=== PATIENT | female | born 1980 | race Caucasian/White ===

== ENCOUNTER → 2020-08-23 11:27 | Outpatient (CLI) | payer OTHER, SELFPAY ==
--- NOTE | ~2020-08-23 | XR_ITS ---
EXAMINATION: XR chest 2V 08/23/2020 11:47 INDICATION: Cough PROCEDURE: 2 view chest COMPARISON: 11/28/2010 FINDINGS: The lungs are clear. The cardiomediastinal silhouette is within normal limits. There are no pleural effusions. There is no pneumothorax suspected. IMPRESSION: 1: NO ACUTE CARDIOPULMONARY DISEASE. Reviewed, dictated and finalized at location A. ER SECURITY ADMINISTRATOR
== END ==
PROVIDERS: PCP Family Medicine; Visit Provider Physician Assistant
DX: R05 Cough (principal)
CPT/HCPCS: 71046

== ENCOUNTER → 2022-09-03 15:20 | Outpatient (CLI) | payer OTHER, SELFPAY ==
--- NOTE | ~2022-09-03 | XR_ITS ---
EXAM: XR hip LT min 2V DATE: 09/03/2022 15:45 HISTORY: M25.559 - Pain in unspecified hip . COMPARISON: None available. FINDINGS: Normal mineralization. No fracture or dislocation. No lytic or blastic lesion. Mild superi or hip joint space narrowing. Minimal acetabular and femoral head osteophytosis. Degenerative change at the pubic symphysis. No erosion or periosteal change. Soft tissues within normal limits. IMPRESSION: Mild left hip osteoarthritis. Moderate osteitis pubis. Reviewed, dictated and finalized at location K. FIC ENGINEER
== END ==
PROVIDERS: PCP Family Medicine; Visit Provider Nurse Practitioner Gerontology
DX: M16.12 Unilateral primary osteoarthritis, left hip (principal); R74.8 Abnormal levels of other serum enzymes; R23.3 Spontaneous ecchymoses; Z83.2 Family history of diseases of the blood and blood-forming organs and certain disorders involving the immune mechanism
CPT/HCPCS: 73502

== ENCOUNTER → 2022-12-27 12:16 | Outpatient (CLI) | payer OTHER, SELFPAY ==
--- NOTE | ~2022-12-27 | XR_ITS ---
XR foot RT 2V DATE: 12/27/2022 12:57 INDICATION: Multiple joint pain. Right foot pain. TECHNIQUE: AP and lateral views COMPARISON: None FINDINGS: There is postoperative change from bunionectomy. Slight posterior calcaneal enthesopathy. No fracture or dislocation, periosteal reaction or bone destruction or erosive change. Mild osteophyte is at the first metatarsophalangeal joint. IMPRESSION: Status post bunionectomy Mild first metatarsophalangeal joint osteoarthritis Slight posterior calcaneal enthesopathy Reviewed, dictated and finalized at location B.
--- NOTE | ~2022-12-27 | XR_ITS ---
XR sacroiliac joints min 3V DATE: 12/27/2022 12:57 INDICATION: Sacroiliac pain. Multiple joint pain. TECHNIQUE: AP and bilateral oblique views of the sacroiliac joints COMPARISON: None FINDINGS: Normal alignment at the sacroiliac joints. No erosive change or ankylosis. Hip joint spaces appear symmetric and relatively preserved. Normal alignment at the pubic symphysis. No pelvic fracture or bone destruction. IMPRESSION: Negative sacroiliac joints Reviewed, dictated and finalized at Location A. Reviewed, dictated and finalized at location B. IMPRESSION: Negative sacroiliac joints
--- NOTE | ~2022-12-27 | XR_ITS ---
XR hand RT 2V DATE: 12/27/2022 12:57 INDICATION: Multiple joint pain. Right hand pain. TECHNIQUE: AP and lateral views COMPARISON: None FINDINGS: No fracture or dislocation, periosteal reaction or bone destruction, erosive change or julienne drocalcinosis. IMPRESSION: No significant abnormality Reviewed, dictated and finalized at location B. IMPRESSION: No significant abnormality
--- NOTE | ~2022-12-27 | XR_ITS ---
XR hand LT 2V DATE: 12/27/2022 12:57 INDICATION: Multiple joint pain. Left hand pain. TECHNIQUE: AP and lateral views COMPARISON: None FINDINGS: No fracture or dislocation, periosteal reaction or bone destruction, erosive change or julienne drocalcinosis. IMPRESSION: No significant abnormality Reviewed, dictated and finalized at location B. IMPRESSION: No significant abnormality
--- NOTE | ~2022-12-27 | XR_ITS ---
XR foot LT 2V DATE: 12/27/2022 12:57 INDICATION: Multiple joint pain. Left foot pain. TECHNIQUE: AP and lateral views COMPARISON: None FINDINGS: Mild posterior calcaneal enthesopathy. Status post bunionectomy. Status post osteotomy of middle phalanx of second digit. No fracture, dislocation, periosteal reaction or bone destruction or erosive change. IMPRESSION: Status post bunionectomy and second digit middle phalanx osteotomy Mild posterior calcaneal enthesopathy Reviewed, dictated and finalized at location B.
--- NOTE | ~2022-12-27 | XR_ITS ---
XR ankle LT 2V DATE: 12/27/2022 12:57 INDICATION: Multiple joint pain. Left ankle pain. TECHNIQUE: AP and lateral views COMPARISON: None FINDINGS: Mild posterior calcaneal enthesopathy. No fracture or dislocation of the ankle or disruptio n of the ankle mortise. No periosteal reaction or bone destruction. No soft tissue swelling is noted. IMPRESSION: Mild posterior calcaneal enthesopathy Reviewed, dictated and finalized at location B.
--- NOTE | ~2022-12-27 | XR_ITS ---
XR ankle RT 2V DATE: 12/27/2022 12:57 INDICATION: Multiple joint pain. Right ankle pain. TECHNIQUE: PA and lateral views COMPARISON: None FINDINGS: Slight posterior calcaneal enthesopathy. No fracture or dislocation of the ankle or disruption of the ankle mortise. No periosteal reaction or bone destruction. No soft tissue swelling. IMPRESSION: Slight posterior calcaneal enthesopathy Reviewed, dictated and finalized at location B.
--- NOTE | ~2022-12-27 | XR_ITS ---
XR wrist RT 2V DATE: 12/27/2022 12:57 INDICATION: Multiple joint pain. Right wrist pain. TECHNIQUE: AP and lateral views of right wrist COMPARISON: None FINDINGS: No fracture or dislocation, periosteal reaction or bone destruction, joint space narrowing, erosive change or chondrocalcinosis. IMPRESSION: Negative Reviewed, dictated and finalized at location B. IMPRESSION: Negative
--- NOTE | ~2022-12-27 | XR_ITS ---
XR wrist LT 2V DATE: 12/27/2022 12:57 INDICATION: Multiple joint pain. Left wrist pain. TECHNIQUE: AP and lateral views COMPARISON: None FINDINGS: No fracture or dislocation, periosteal reaction or bone destruction, joint space narrowing, erosive change or chondrocalcinosis. IMPRESSION: Negative Reviewed, dictated and finalized at location B. IMPRESSION: Negative
== END ==
PROVIDERS: PCP Family Medicine; Visit Provider Internal Medicine Rheumatology
DX: M25.50 Pain in unspecified joint (principal); M79.10 Myalgia, unspecified site; M77.32 Calcaneal spur, left foot; M77.31 Calcaneal spur, right foot
CPT/HCPCS: 72202; 73100; 73120; 73600; 73620

== ENCOUNTER → 2023-01-28 08:31 | Outpatient (CLI) | payer OTHER, SELFPAY ==
--- NOTE | ~2023-01-28 | XR_ITS ---
EXAMINATION: XR_CERV2-3V_CR DATE: 01/28/2023 08:52 INDICATION: Neck pain. TECHNIQUE: 4 views of cervical spine on 5 radiographs were obtained. COMPARISON: Cervical spine radiograph 02/20/2008 FINDINGS: There is 9 degrees levocurvature of cervicothoracic spine. Vertebral body heights are navjot l. There is mildly decreased disc height at C5-C6. The facet joints are unremarkable. No central mau l stenosis or prevertebral soft tissue swelling. IMPRESSION: 1. Mild cervical spondylosis. Reviewed, dictated and finalized at location A.
== END ==
PROVIDERS: PCP Family Medicine; Visit Provider Nurse Practitioner Gerontology
DX: M47.892 Other spondylosis, cervical region (principal)
CPT/HCPCS: 72040

== ENCOUNTER → 2023-02-14 12:12 | Outpatient (CLI) | payer OTHER, SELFPAY ==
--- NOTE | ~2023-02-14 | CT_ITS ---
EXAMINATION: CT abdomen pelvis w con DATE: 02/14/2023 13:22 INDICATION: Bloody stool TECHNIQUE: Computed tomography (CT) of the abdomen and pelvis was performed with 100 CC Omnipaque 350 intravenous contrast. Automated exposure control and iterative reconstruction technique were employe d. Exam dose: 600.21 mGy-cm total exam DLP. COMPARISON: None. FINDINGS: The lung bases are clear. Normal heart size. No pericardial or pleural effusion. Status post cholecystectomy. The liver, spleen, pancreas, and adrenal glands appear normal. Normal caliber of the bile and pancreatic ducts. No renal mass lesion or urinary tract calculus or hydroureteronephrosis. The urinary bladder is evacu ated, not optimally evaluated as result. Normal caliber of the abdominal aorta. No intraperitoneal or retroperitoneal or pelvic mass lesion or adenopathy or ascites is detected. No bowel obstruction is noted. There are numerous mid and distal fluid containing small bowel segment s, including some air-fluid levels. No bowel wall thickening, abnormal dilatation of the bowel, pneum atosis or intraperitoneal free air is detected. The appendix is not identified. No suspicious osteolytic or osteoblastic lesions. IMPRESSION: Nondilated fluid containing small bowel without bowel wall thickening, pneumatosis or in traperitoneal free air. Differential diagnosis includes enteritis, mild adynamic ileus Reviewed, dictated and finalized at Location A. Reviewed, dictated and finalized at location [] IMPRESSION: Nondilated fluid containing small bowel without bowel wall thicken ing, pneumatosis or intraperitoneal free air. Differential diagnosis includes e nteritis, mild adynamic ileus
== END ==
PROVIDERS: PCP Family Medicine; Visit Provider Nurse Practitioner
DX: K62.5 Hemorrhage of anus and rectum (principal); K62.89 Other specified diseases of anus and rectum; R14.0 Abdominal distension (gaseous)
CPT/HCPCS: 74177; Q9967

== ENCOUNTER → 2023-02-20 10:49 | Outpatient (CLI) | payer OTHER, SELFPAY ==
--- NOTE | ~2023-02-20 | XR_ITS ---
XR abdomen/kub 1V 02/20/2023 11:25 INDICATION: Flank pain TECHNIQUE: KUB COMPARISON: None FINDINGS: Bowel gas pattern is normal. There are cholecystectomy clips. There is no evidence of free air, mass, organomegaly, ascites or obstruction. No abnormal calculi are seen. The bones appear int act. IMPRESSION: 1: No acute abdominal abnormality identified. Reviewed, dictated and finalized at location []
== END ==
PROVIDERS: PCP Family Medicine; Visit Provider Nurse Practitioner
DX: R14.0 Abdominal distension (gaseous) (principal)
CPT/HCPCS: 74018

== ENCOUNTER 2023-02-27 08:19 | Outpatient (CLI) | payer OTHER, SELFPAY ==
--- NOTE | ~2023-02-27 | XR_ITS ---
EXAMINATION: XR small bowel follow through DATE: 02/27/2023 10:53 INDICATION: Abnormal small bowel with bloating and distention. TECHNIQUE: Investor Relations Director radiograph(s) of the abdomen was/were obtained. Oral contrast was administered, and sequential radiographs of the abdomen were obtained until oral contrast was noted to be in the proxi mal colon. Spot fluoroscopic images of the small bowel were obtained. Fluoroscopy exposure time was 2 .1 minutes. A total of 13 fluoroscopic images and 7 overhead radiographs were obtained. COMPARISON: None. FINDINGS: Investor Relations Director radiograph demonstrates cholecystectomy clips in right upper quadrant. No dilated loops of gas- filled bowel to suggest obstruction. Transit time from the stomach to proximal colon was approximatel y 90 minutes. There is normal caliber and mucosal fold pattern throughout the small bowel. Terminal i leum appears normal but along with tip the cecum is partially obscured by multiple superimposed loops of contrast-filled small bowel. IMPRESSION: 1. Normal small bowel follow-through but with suboptimal visualization of the terminal ileum. Reviewed, dictated and finalized at location A. IMPRESSION: 1. Normal small bowel follow-through but with suboptimal visualization of the t erminal ileum.
== END 2023-02-27 08:20 | disposition home or self-care (01) ==
PROVIDERS: PCP Family Medicine; Visit Provider Nurse Practitioner
DX: R14.0 Abdominal distension (gaseous) (principal); R93.89 Abnormal findings on diagnostic imaging of other specified body structures; K52.9 Noninfective gastroenteritis and colitis, unspecified
CPT/HCPCS: 74250

== ENCOUNTER 2023-03-10 09:00 | Outpatient (NON) | payer OTHER, SELFPAY | END 2023-03-10 09:01 | disposition home or self-care (01) | LOC: ANHLAB 03-12 07:41 | PROVIDERS: PCP Family Medicine; Visit Provider Internal Medicine Gastroenterology | DX: K21.9 Gastro-esophageal reflux disease without esophagitis (principal) | CPT/HCPCS: 88305 ==

== ENCOUNTER 2023-03-10 09:49 | Day surgery (SDC) | payer OTHER, SELFPAY ==
[2023-01-30 13:38] VITALS: BMI 24.0
[2023-02-05 14:00] VITALS: BMI 23.5
--- NOTE | 2023-03-07 13:36 | PM.HPGS ---
History of Present Illness History of Present Illness Consent: Risks, benefits, and alternatives have been discussed and questions answered. Patient agrees to proceed with procedure. Chief complaint: Gerd, Hemorrhage of Anus & Rectum, ABD Distension Narrative: Natty Easton is a 42 year old female With symptomatic acid reflux. She also has seen blood in her stools. She has felt a lump which is tender at her anal opening. He has had a great deal of constipation lately. Now she is using MiraLax her bowels are more regular. She does get the feeling that things are not going through her abdomen such as when she drink her prep last night he had a stop chcf through. Is a sensation that seems to cause her to have regurgitation from time to time. She will burp and bring up particles of food. Review of Systems Review of Systems: All systems reviewed & are unremarkable except as noted in HPI and below PMFSH Past Medical History Medical History Abdominal bloating Abnormal findings on imaging test Acne vulgaris Acute diarrhea Allergic asthma Anal abscess Anxiety Asthma Enteritis Gastro-esophageal reflux disease without esophagitis Hx of adenomatous colonic polyps Internal hemorrhoids Rectal abscess Rectal bleeding Rectal pain Upper abdominal pain Family History Family History Father Hypertension Mother Family history of arthritis Family history of malignant neoplasm, Onset Age: 46 Mother Family history of malignant neoplasm of breast in first degree relative Other Cerebrovascular accident Social History Social History Social History: Single Smoking packs per day: 0.5 Smoking cigarettes per day: 10.0 Years smoked: 10 Smoking pack-years: 5.00 Smoking status: Former smoker Tobacco type: cigarettes Second hand tobacco smoke exposure: No Smoking end date: 08/03/22 Alcohol intake: current Drinks per week: 1 Alcohol use details: Occasionally Substance use: never Substance use type: does not use Other substance usage details: topical CBD for pain Lack of Transportation: No Lack of Food: Never True Current Housing: I Have Housing Concerned About Future Housing: No Difficulty Paying Gas/Electric Bills: No Difficulty Paying for Meds: No Currently Unemployed: No Education: Decline to Answer Difficulty w/ Childcare or Family Care: No Living arrangements: with family Occupation/Education: occupation Gender identity (if verbalized by the patient): Female Sexual Orientation (if Verbalized by the Patient): Straight or Heterosexual Spiritual care concerns: No Meds Home Medications and Allergies Home Medications Medication Instructions Recorded Confirmed Type nicotine 21 mg/24 hr daily 1 patch transdermal DAILY #28 ea 06/01/21 03/10/23 Rx transdermal patch (Nicoderm CQ) tretinoin 0.05 % topical cream See Rx Instructions .Route 05/21/22 03/10/23 Rx .COMPLEX #45 grams albuterol sulfate 90 mcg/actuation 1 inh inhalation Q4H #6.7 grams 07/22/22 03/10/23 Rx aerosol inhaler fluticasone 250 mcg-salmeterol 50 See Rx Instructions .Route 11/01/22 03/10/23 Rx mcg/dose blistr powdr for .COMPLEX #60 blisters inhalation (Advair Diskus) fluticasone propionate 50 1 spray intranasal BID #18 mL 12/08/22 03/10/23 Rx mcg/actuation nasal spray,suspension hydrocortisone acetate 25 mg See Rx Instructions .Route 12/23/22 03/10/23 Rx rectal suppository (Anucort-HC) .COMPLEX #12 supp omeprazole 20 mg capsule,delayed See Rx Instructions .Route 01/09/23 03/10/23 Rx release .COMPLEX #90 caps spironolactone 50 mg tablet See Rx Instructions .Route 01/22/23 03/10/23 Rx .COMPLEX #90 tabs carboxymethyl 0.5 %-glycerin 1 1 drp EACH EYE Q2-4H PRN Acne 01/28/23 03/10/23 History %-polysorb
--- NOTE | 2023-03-10 09:32 | WPDANESEPPF ---
Anes - Initial Pre Proc Eval Procedure: Operation Date: 03/10/23 11:30 Proposed Procedures p Esophagogastroduodenoscopy - Shady Harp MD s Diagnostic Colonoscopy - Shady Harp MD Date/Time: 03/10/23 09:32 Surgeon: Shady Harp MD Pre Op Diagnosis: Gerd, Hemorrhage of Anus & Rectum, ABD Distension Patient Data Age: 42 Gender: F Height: 1.68 m Weight: 66 kg Allergies Allergy/AdvReac Type Severity Reaction Status Date / Time sulfanilamide Allergy Mild hives Verified 03/10/23 10:29 trimethoprim Allergy Mild hives Verified 03/10/23 10:29 Sulfa (Sulfonamide Allergy Unknown Hives Verified 03/10/23 10:29 Antibiotics) sulfamethizole Allergy Unknown Hives Verified 03/10/23 10:29 adhesive tape AdvReac Mild Blister Verified 03/10/23 10:29 varenicline AdvReac Hallucinati Verified 03/10/23 10:29 ng Contrast Media Allergy Mild Vomiting Uncoded 03/10/23 10:29 Home Medications Medication Instructions Recorded Confirmed Type nicotine 21 mg/24 hr daily 1 patch transdermal DAILY #28 ea 06/01/21 03/04/23 Rx transdermal patch (Nicoderm CQ) tretinoin 0.05 % topical cream See Rx Instructions .Route 05/21/22 03/04/23 Rx .COMPLEX #45 grams albuterol sulfate 90 mcg/actuation 1 inh inhalation Q4H #6.7 grams 07/22/22 03/04/23 Rx aerosol inhaler fluticasone 250 mcg-salmeterol 50 See Rx Instructions .Route 11/01/22 03/04/23 Rx mcg/dose blistr powdr for .COMPLEX #60 blisters inhalation (Advair Diskus) fluticasone propionate 50 1 spray intranasal BID #18 mL 12/08/22 03/04/23 Rx mcg/actuation nasal spray,suspension hydrocortisone acetate 25 mg See Rx Instructions .Route 12/23/22 03/04/23 Rx rectal suppository (Anucort-HC) .COMPLEX #12 supp omeprazole 20 mg capsule,delayed See Rx Instructions .Route 01/09/23 03/04/23 Rx release .COMPLEX #90 caps spironolactone 50 mg tablet See Rx Instructions .Route 01/22/23 03/04/23 Rx .COMPLEX #90 tabs carboxymethyl 0.5 %-glycerin 1 1 drp EACH EYE Q2-4H PRN Acne 01/28/23 03/04/23 History %-polysorb 80 0.5 %-PF eye dropperette (Refresh Optive Advanced (PF)) lifitegrast 5 % eye drops in a 1 drp EACH EYE Q12H 01/28/23 03/04/23 History dropperette (Xiidra) lisdexamfetamine 30 mg capsule 40 mg PO DAILY 01/28/23 03/04/23 History (Vyvanse) tizanidine 2 mg tablet 2 mg PO QHS PRN muscle spasticity 01/28/23 03/04/23 Rx #30 tabs cyanocobalamin (vitamin B-12) 500 500 mcg PO DAILY 02/05/23 03/04/23 History mcg tablet folic acid 1 mg tablet 1 mg PO DAILY 02/05/23 03/04/23 History ascorbic acid (vitamin C) 500 mg 500 mg PO DAILY 02/06/23 03/04/23 History tablet benzonatate 100 mg capsule 200 mg PO TID PRN Cough 02/06/23 03/04/23 History cholecalciferol (vitamin D3) 125 125 mcg PO DAILY 02/06/23 03/04/23 History mcg (5,000 unit) tablet (Vitamin D3) diclofenac sodium 1 % topical gel 2 g topical QID 02/06/23 03/04/23 History magnesium 100 mg tablet 400 mg PO DAILY 02/06/23 03/04/23 History metronidazole 0.75 % topical gel 1 applic topical BID 02/06/23 03/04/23 History multivitamin 1 tablet PO DAILY 02/06/23 03/04/23 History turmeric root extract 500 mg tablet 500 mg PO DAILY 02/06/23 03/04/23 History amoxicillin 875 mg-potassium 1 tablet PO BID #20 tabs 03/03/23 03/04/23 Rx clavulanate 125 mg tablet hydrocortisone 2.5 % topical cream 1 applic RECTAL QHS PRN 03/03/23 03/04/23 Rx with perineal applicator hemorrhoids #30 grams Patient hx anesthesia problems: none Family hx anesthesia problems: none Results Review: All pre-operative results and documents have been reviewed as part of the pre-operative evaluation. [facility] Past Medical History Medical History (Updated 03/10/23 @ 09:33 by Sterling Car MD) Abdominal bloating Abnormal findings on imaging test Acne vulgaris Acute diarrhea Allergic asthma Anal abscess Anxiety Asthma Enteritis Gastro-esophageal reflux disease without esophagitis Hx of adenomatous
[2023-03-10 10:23] VITALS: BP 101/75; PULSE 62; RESP 14; TEMP 36.6; O2SAT 100
[2023-03-10] MEDS: LACTATED RINGERS 1,000 ML 150 ML IV CONT (10:40)
[2023-03-10 12:26] VITALS: BP 104/53; PULSE 83; RESP 16; O2SAT 100
[2023-03-10 12:36] VITALS: BP 102/65; PULSE 85; RESP 16; O2SAT 100
[2023-03-10 12:46] VITALS: BP 102/70; PULSE 73; RESP 16; O2SAT 100
--- NOTE | 2023-03-10 14:46 | WPDANESPN ---
Anes - Prog Note Post-Op Date/Time: 03/10/23 14:46 Cardiovascular status: normal Respiratory status: normal Airway patency: baseline Mental status: baseline Post-Op hydration status: normal Vital Signs: Last Vital Signs Temp 36.6 C 03/10/23 10:23 Pulse 73 03/10/23 12:46 Resp 16 03/10/23 12:46 BP 102/70 03/10/23 12:46 Pulse Ox 100 03/10/23 12:46 O2 Del Method Room Air 03/10/23 12:46 Pain Score (VAS): 0 I/O: Intake & Output 03/09/23 03/10/23 03/10/23 23:59 07:59 15:59 Intake Total 600 Balance 600 Post-procedural complaints: none Patient Feedback: Patient satisfied with anesthetic care.
== END 2023-03-10 13:04 | disposition home or self-care (01) ==
PROVIDERS: PCP Family Medicine; Visit Provider Internal Medicine Gastroenterology
PROC: 0DJ08ZZ Inspection of Upper Intestinal Tract, Via Natural or Artificial Opening Endoscopic (ICD-10-PCS; CPT 43235; principal; 2023-03-10 11:30)
PROC: 0DJD8ZZ Inspection of Lower Intestinal Tract, Via Natural or Artificial Opening Endoscopic (ICD-10-PCS; CPT 45378; 2023-03-10 11:30)
DX: K21.9 Gastro-esophageal reflux disease without esophagitis (principal)
CPT/HCPCS: 45380; 43239

== ENCOUNTER 2023-05-06 15:29 | Outpatient (RCR) | payer OTHER, SELFPAY ==
--- NOTE | 2023-05-06 16:26 | OPREHPOC ---
Outpatient Therapy Plan of Care This is a Multidisciplinary Plan of Care that may contain components documented by all disciplines (PT, OT, and ST.) PT Problem 1 PT Problem #1 Knowledge Deficit PT Goal 1 Goal 1. Patient will perform independent HEP Target Visit 5 PT Problem 2 PT Problem #2 Impaired Functional ADLs PT Goal 1 Goal 1. Patient will be able to cough without reporting incontinence Target Visit 5 PT Problem 3 PT Problem #3 Impaired Strength PT Goal 1 Goal 1. Improve strength to 4/5 to decrease incontinence Target Visit 4 PT Goal 2 Goal 2. Improve endurance to 10 seconds to decrease incontinence Target Visit 5
--- NOTE | 2023-05-06 16:26 | PTOPEVAL1 ---
Assessment and note entered by Janette Horn DPT Evaluation Information Assessment Status Evaluation Subjective Information Pt reports stress incontinence, often worse with laughing and sneezing. Difficulty with constipation and has had to splint at times, has been diagnosed with a minimal prolapse . Urinates more than 10 times a day, 0-1 times at night. Does drink coffee in the morning and then switches to water. Caffeinated soda a few times a week. Drinks a lot of water due to dry mouth and states she is also being tested for autoimmune issues. Incontinence frequency is very situational- some weeks she will have none but if she is sick and sneezing will be multiple times a day and wears liners. Denies pain with urination but some hesitancy in the last year. Can hold urge up to 30 minutes if sitting, if walking will be a much shorter amount of time. BM 1-2 times a day, typically no pain but recent surgery for fistula so has had pain. Takes Miralax daily. Diagnosed with IBS at 14 and has had polyps. Positional pelvic pain with intercourse, discomfort with pap smears and IUD management. Pt has been 4 times, 3 vaginal deliveries all with tearing. Uterine ablation in February 2022 for irregular periods, no longer has menstrual cycles. Fallopian tube removal in 2016. Patient goal: decrease incontinence especially when I'm sick . Reports frustration and there have been times where she has had to change clothes and not want to go out in the community. No return visit to MD scheduled. Reported Pain Level Pain Score 0: Self Report Assessment PT Clinical Summary The patient is presenting to skilled therapy with urinary incontinence and a history of constipation . She presents with decreased pelvic floor strength and endurance and decreased core strength which are contributing to her symptoms and need to wear a liner/change clothes at times. She will highly benefit from therapy to address these impairments and safely reduce constipation and incontinence. Plan of Care Interventions Manual Therapy,Neuro Re-education,Patient/ Caregiver Education,Therapeutic Activities, Therapeutic Exercise PT Services Indicated Yes Treatment Frequency and
--- NOTE | 2023-05-20 10:02 | PCPTNOTE ---
Patient canceled appointment 05/20/23 due to illness.
--- NOTE | 2023-05-26 15:11 | PCPTNOTE ---
Patient called to cancel remaining appointments today due to getting in 3 weeks and being too busy. Will call back to schedule at a later date.
--- NOTE | 2023-08-04 11:14 | PTOPDC ---
Assessment and note entered by Janette Horn DPT Evaluation Information Assessment Status Discharge - Pt Not Present Subjective Information - Assessment PT Clinical Summary Patient has not attended therapy since 05/06/23. She will be discharged this date. Plan of Care PT Services Indicated Yes
== END 2023-08-04 14:50 | disposition home or self-care (01) ==
LOC: ANHGOSHPT 15:29
PROVIDERS: PCP Family Medicine
DX: K59.00 Constipation, unspecified (principal); N39.3 Stress incontinence (female) (male)
CPT/HCPCS: 97161; 97530